=== PATIENT | male | born 1950 | race Caucasian/White ===

== ENCOUNTER 2016-05-26 07:01 | Inpatient (IN) | payer OTHER, MEDICARE ==
[2016-05-26] MEDS ORDERED: NS 0.9% 1000 ML* 1,000 ML IV ONE (07:47)
[2016-05-26] MEDS ORDERED: Diltiazem IV* 5 MG/ML 5 ML VIAL (for loading dose/IV Push) (25 MG) IV SLOW PU ONE (08:00)
[2016-05-26] MEDS ORDERED: Diltiazem IV VIAL* 125 MG in D5W 100 ML BAG* 100 ML IV ONE (08:00)
[2016-05-26 08:17] LABS: Hematocrit 44 % (42-52); Hemoglobin 14.7 g/dl (14.0-18.0); Mean Corpuscular HGB Conc 34 g/dl (31-36); Mean Corpuscular Hemoglobin 31 pg (27-31); Mean Corpuscular Volume 91 fL (80-94); Mean Platelet Volume 8 um3 (7.4-10.4); Red Cell Distribution Width 13 % (10.5-15); White Blood Count 5.9 10^3/ul (3.5-10.8)
[2016-05-26 08:32] LABS: Albumin 3.8 g/dL (3.2-5.2); Calcium 9.1 mg/dL (8.6-10.3); EGFR African American 72.1 (>60); EGFR Non-African American 56.1 (>60); Globulin 2.7 g/dL (2-4); Magnesium 2.2 mg/dL (1.9-2.7); Total Bilirubin 0.4 mg/dL (0.2-1.0); Total Protein 6.5 g/dL (6.4-8.9)
[2016-05-26 08:33] LABS: Troponin I 0.03 ng/mL (<0.04)
--- NOTE | 2016-05-26 08:35 | RAD ---
HISTORY: Irregular heart rate COMPARISONS: May 20, 2003 VIEWS:1: Single frontal portable view of the chest at 8:12 AM FINDINGS: LINES AND TUBES: None. CARDIOMEDIASTINAL SILHOUETTE: The cardiomediastinal silhouette is normal for portable technique. PLEURA: The costophrenic angles are sharp. No pleural abnormalities are noted. LUNG PARENCHYMA: The lungs are clear. ABDOMEN: The upper abdomen is clear. There is no subphrenic gas. BONES AND SOFT TISSUES: There is remote posttraumatic deformity to the left hemithorax. There is post surgical change to the right shoulder IMPRESSION: NO ACTIVE CARDIOPULMONARY DISEASE.
[2016-05-26 09:03] LABS: TSH (Thyroid Stimulating Horm) 2.7 mcIU/mL (0.34-5.60)
[2016-05-26] MEDS ORDERED: Acetaminophen TAB* 325 MG PO PRN (10:03)
[2016-05-26] MEDS ORDERED: PROCHLORPERAZINE INJ 5 MG/ML 2 ML VIAL IV PRN (10:03)
[2016-05-26] MEDS: Diltiazem IV VIAL* 125 MG in D5W 100 ML BAG* 100 ML IV SCH (11:30)
--- NOTE | 2016-05-26 12:22 | ED ---
Tamika Finn Salem, scribed for Cesar Prince MD on 05/26/16 at 0757 . Palpitations / Dysrhythmia - HPI Summary HPI Summary: Patient is a 66 y/o male who presents to the ED with palpitation that lasted approximately 30 minute since this morning. He denies diaphoresis or nausea, but he reports diaphoresis a few days ago. Also he reports lightheadedness today , but denies edema in the lower extremities. He denies rhinorrhea or cough. He also denies intake of caffeine or chocolate. Pt is on medication for HTN and he denies any Hx of MT. - History of Current Complaint Chief Complaint: EDDysrhythmPalp Time Seen by Provider: 05/26/16 07:34 Hx Obtained From: Patient Onset/Duration: Gradual Onset, Lasting Minutes Severity Initially: Moderate Severity Currently: Moderate Aggravating: Nothing Alleviating: Nothing Associated Signs & Symptoms: Lightheadedness - Allergy/Home Medications Allergies/Adverse Reactions: Allergies Allergy/AdvReac Type Severity Reaction Status Date / Time No Known Allergies Allergy Verified 05/26/16 08:50 Home Medications: Home Medications Omeprazole 40 mg PO DAILY 05/26/16 [History Confirmed 05/26/16] Spironolactone TAB* [Aldactone TAB*] 25 mg PO DAILY 05/26/16 [History Confirmed 05/26/16] Valsartan/HCTZ 160/12.5(NF) [Diovan HCT 160/12.5 (NF)] 1 tab PO DAILY 05/26/16 [ History Confirmed 05/26/16] PMH/Surg Hx/FS Hx/Imm Hx Cardiovascular History: Reports: Hx Hypertension GI History: Reports: Other GI Disorders - divirticulitis History: Reports: Other Problems/Disorders - kidney stones Musculoskeletal History: Reports: Other Musculoskeletal History - knee surgery - Surgical History Surgery Procedure, Year, and Place: hernia, knees Infectious Disease History: No Infectious Disease History: Denies: Traveled Outside the [place] in Last 30 Days - Family History Known Family History: Positive: Cardiac Disease - brother atrial septal defect - Social History Substance Use Type: Reports: None Review of Systems Negative: Skin Diaphoresis Negative: Nausea Negative: Edema Neurological: Other - Lightheadedness. All Other Systems Reviewed And Are Negative: Yes Physical Exam - Summary Physical Exam Summary: The patient is well-nourished in no acute distress and in no acute pain. The skin is warm and dry and skin color reflects adequate perfusion. HEENT: The head is normocephalic and atraumatic. The pupils are equal and reactive. The conjunctivae are clear and without drainage. Nares are patent and without drainage. Mouth reveals moist mucous membranes and the throat is without erythema and exudate. The external ears are intact. The ear canals are patent and without drainage. The tympanic membranes are intact. No facial droop. Neck is supple with full range of motion and non-tender. There are no carotid bruits. Respiratory: Chest is non-tender. Lungs are clear to auscultation and breath sounds are symmetrical and equal. Cardiovascular: Irregularly irregular and tachycardic. There is no murmur appreciated. There is no peripheral edema and pulses are symmetrical and equal on upper extremities. Abdomen: The abdomen is soft and non-tender. Obese. Musculoskeletal: There is no back pain noted. Extremities are non-tender with full range of motion. There is good capillary refill. There is no peripheral edema or calf tenderness elicited. Neurological: Patient is alert and oriented to person, place and time. The patient has symmetrical motor strength in all four extremities. Psychiatric: The patient has an appropriate affect and does not exhibit any anxiety or depression. Triage Information Reviewed: Yes Vital Signs On Initial Exam: Initial Vitals Temp Pulse Resp BP Pulse Ox 97.4 F 101 16 140/70 97 05/26/16 07:12 05/26/16 07:12 05/26/16 07:12 05/26/16 07:12 05/26/16 07:12 Vital Signs Reviewed: Yes Diagnostics - Vital Signs Vital Signs Temp Pulse Resp BP Pulse Ox 05/26/16 07:12 97.4 F 101 16 140/70 97 - Laboratory Lab Results: Lab Results 05/26/16 05/26/16 05/26/16 Range/Units 07:55 07:55 07:55 WBC 5.9 (3.5-10.8) 10^3/ul RBC 4.80 (4.0-5.4) 10^6/ul Hgb 14.7 (14.0-18.0) g/dl Hct 44 (42-52) % MCV 91 (80-94) fL MCH 31 (27-31) pg MCHC 34 (31-36) g/dl RDW 13 (10.5-15) % Plt Count 199 (150-450) 10^3/ul MPV 8 (7.4-10.4) um3 Neut % (Auto) 61.6 (38-83) % Lymph % (Auto) 22.7 L (25-47) % Woodson % (Auto) 11.5 H (1-9) % Eos % (Auto) 3.1 (0-6) % Baso % (Auto) 1.1 (0-2) % Absolute Neuts (auto) 3.7 (1.5-7.7) 10^3/ul Absolute Lymphs (auto) 1.3 (1.0-4.8) 10^3/ul Absolute Monos (auto) 0.7 (0-0.8) 10^3/ul Absolute Eos (auto) 0.2 (0-0.6) 10^3/ul Absolute Basos (auto) 0.1 (0-0.2) 10^3/ul Absolute Nucleated RBC 0 10^3/ul Nucleated RBC % 0 INR (Anticoag Therapy) (0.89-1.11) Sodium 140 (133-145) mmol/L Potassium 4.0 (3.5-5.0) mmol/L Chloride 107 (101-111) mmol/L Carbon Dioxide 26 (22-32) mmol/L Anion Gap 7 (2-11) mmol/L BUN 32 H (6-24) mg/dL Creatinine 1.28 H (0.67-1.17) mg/dL Est GFR ( Amer) 72.1 (>60) Est GFR (Non-Af Amer) 56.1 (>60) BUN/Creatinine Ratio 25.0 H (8-20) Glucose 106 H (70-100) mg/dL Lactic Acid 1.5 (0.5-2.0) mmol/L Calcium 9.1 (8.6-10.3) mg/dL Magnesium 2.2 (1.9-2.7) mg/dL Total Bilirubin 0.40 (0.2-1.0) mg/dL AST 26 (13-39) U/L ALT 26 (7-52) U/L Alkaline Phosphatase 55 (34-104) U/L Troponin I 0.03 (<0.04) ng/mL B-Natriuretic Peptide ( - 100) pg/mL Total Protein 6.5 (6.4-8.9) g/dL Albumin 3.8 (3.2-5.2) g/dL Globulin 2.7 (2-4) g/dL Albumin/Globulin Ratio 1.4 (1-3) TSH 2.70 (0.34-5.60) mcIU/mL 05/26/16 05/26/16 Range/Units 07:55 07:55 WBC (3.5-10.8) 10^3/ul RBC (4.0-5.4) 10^6/ul Hgb (14.0-18.0) g/dl Hct (42-52) % MCV (80-94) fL MCH (27-31) pg MCHC (31-36) g/dl RDW (10.5-15) % Plt Count (150-450) 10^3/ul MPV (7.4-10.4) um3 Neut % (Auto) (38-83) % Lymph % (Auto) (25-47) % Woodson % (Auto) (1-9) % Eos % (Auto) (0-6) % Baso % (Auto) (0-2) % Absolute Neuts (auto) (1.5-7.7) 10^3/ul Absolute Lymphs (auto) (1.0-4.8) 10^3/ul Absolute Monos (auto) (0-0.8) 10^3/ul Absolute Eos (auto) (0-0.6) 10^3/ul Absolute Basos (auto) (0-0.2) 10^3/ul Absolute Nucleated RBC 10^3/ul Nucleated RBC % INR (Anticoag Therapy) 0.94 (0.89-1.11) Sodium (133-145) mmol/L Potassium (3.5-5.0) mmol/L Chloride (101-111) mmol/L Carbon Dioxide (22-32) mmol/L Anion Gap (2-11) mmol/L BUN (6-24) mg/dL Creatinine (0.67-1.17) mg/dL Est GFR ( Amer) (>60) Est GFR (Non-Af Amer) (>60) BUN/Creatinine Ratio (8-20) Glucose (70-100) mg/dL Lactic Acid (0.5-2.0) mmol/L Calcium (8.6-10.3) mg/dL Magnesium (1.9-2.7) mg/dL Total Bilirubin (0.2-1.0) mg/dL AST (13-39) U/L ALT (7-52) U/L Alkaline Phosphatase (34-104) U/L Troponin I (<0.04) ng/mL B-Natriuretic Peptide 127 H ( - 100) pg/mL Total Protein (6.4-8.9) g/dL Albumin (3.2-5.2) g/dL Globulin (2-4) g/dL Albumin/Globulin Ratio (1-3) TSH (0.34-5.60) mcIU/mL Result Diagrams: 05/26/16 07:55 05/26/16 07:55 Lab Statement: Any lab studies that have been ordered have been reviewed, and results considered in the medical decision making process. - Radiology CXR Radiology Interpretation Completed By: Radiologist - IMPRESSION: NO ACTIVE CARDIOPULMONARY DISEASE. - EKG 0718 EKG Interpretation: A Fib with rate @ [address]. No STEMI or ST elevation. 0921 EKG Interpretation: Rate slowed down to 78 bpm. Still in A fib. RBBB. Re-Evaluation - Re-Evaluation First Eval Re-Evaluation Time: 09:52 Comment: Pt agrees with plan to admit. Course/Dx - Diagnoses Differential Diagnosis/HQI/PQRI: Positive: Coronary Artery Disease, Hypokalemia , Other - atrial fibrillation with rvr Provider Diagnoses: AFIB WITH RVR - Physician Notifications Discussed Care Of Patient With: Dr. Worley (Cardioilogist) @ 0945. Will admit. Dr. Miranda (Hospitalist). Discharge - Discharge Plan Condition: Stable Disposition: ADMITTED TO [facility] documentation as recorded by the Tamika arriaza Salem accurately reflects the service I personally performed and the decisions made by , Cesar Prince MD.
[2016-05-26] MEDS ORDERED: Ondansetron INJ* 2 MG/ML VIAL IV PRN (12:43)
[2016-05-26] MEDS: Enoxaparin(*) 150 MG/ML 1 ML SYRINGE SUBCUT SCH (14:13)
--- NOTE | 2016-05-26 14:54 | HP ---
HISTORY AND PHYSICAL: DATE OF ADMISSION: 05/26/16 PRIMARY CARE PROVIDER: Dr. Nj. CONSULTING SUBSTITUTE NURSE: Dr. Worley. ATTENDING PHYSICIAN WHILE IN THE HOSPITAL: Sendy Peterson MD * (report dictated by Flash Fiore NP). CHIEF COMPLAINT: Not feeling right. HISTORY OF PRESENT ILLNESS: Mr. Casper is a 66-year-old male patient. He has a history of hypertension, hyperlipidemia, DJD, BETH, GERD and a history of a hole in his heart, I assume PFO. He comes into the ER today, stating that around 6 in the morning he did not feel right. He states he has episodes where he does not feel right at times, he does not feel good. He states today's episode lasted about an hour and a half and he checked his pulse and he noted it was irregular. He had never done this before. At that point because of the irregular pulse, he decided to come into the ER. He denies any recent trips, travel. No recent calf tenderness, swelling or pain. He states that he has not been feeling short of breath. No swelling of the lower extremities. No chest discomfort. Denies any chest pain with exertion. He was concerned, came into the hospital and was ultimately found to have atrial fibrillation, which is new for the patient. He denied having any recent illnesses. Denied having any recent cough, cold or febrile illnesses or any abdominal pain. He was evaluated by Dr. Prince, there was concern for the AFib with RVR, he was requiring IV Cardizem for rate control. Hospitalist service was asked to evaluate for admission. PAST MEDICAL HISTORY: Significant for: 1. Hypertension. 2. Hyperlipidemia. 3. DJD. 4. BETH. 5. GERD. 6. PFO. PAST SURGICAL HISTORY: 1. He has had a hemorrhoidectomy. 2. He has had bilateral arthroscopies. 3. He has had a shoulder arthroscopy. 4. He has had a hernia repair. HOME MEDICATIONS: According to the list that he provided include: 1. Spironolactone 25 mg daily. 2. Omeprazole 40 mg daily. 3. Valsartan/hydrochlorothiazide 1 tablet p.o. daily. ALLERGIES TO MEDICATIONS: Include no known drug allergies. FAMILY HISTORY: Mother had a history of cancer. Father had a history of pacemaker placement. SOCIAL HISTORY: He does not smoke. He does not drink. 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 He also works at [employer]. Surrogate decision maker is his . REVIEW OF SYSTEMS: There is no documented fever. He denied having any significant weight change. There was no double vision. There is no ear discharge. He denies having any rhinorrhea. No sore throat. No thyroid enlargement. Denied having any chest pain. There is no orthopnea and no nocturnal dyspnea. There is no abdominal pain. No nausea. No vomiting. No dysuria. No frequency. No loss of consciousness, no pruritus and no skin ulcerations. Review of 14 systems completed, all others negative. PHYSICAL EXAMINATION GENERAL: At this time, Mr. Casper is a 66-year-old male patient. He is sitting in the hospital bed. He does not appear to be in any acute distress. VITAL SIGNS: Blood pressure 121/71 with a pulse of 64, respirations 15, O2 sat 96%, temperature 97.4. HEENT: Head is atraumatic and normocephalic. Eyes: EOMs are intact. Sclerae anicteric and not pale. Throat: Oral mucosa appears to be moist. No oropharyngeal erythema. NECK: Supple. HEART: Sounds S1, S2. Irregularly irregular rate. No murmurs, rubs, or gallops. LUNGS: Clear to auscultation. No wheezes, rales or rhonchi. ABDOMEN: Soft, flat, nontender. Bowel sounds present. EXTREMITIES: Pulses were 2+ throughout. He is able to move all 4 extremities with 5/5 strength. NEUROLOGIC: The patient is awake, alert and oriented x3. Tongue midline. Victim Witness Administrator are equal. No gross focal deficits. SKIN: Grossly intact. LABORATORY DATA: Today revealed WBC of 5.9, RBC 4.80, hemoglobin 14.7, hematocrit of 44, platelet count of 199, INR 0.94. Sodium 140, potassium 4.0, chloride 107, bicarb of 26, BUN 32, creatinine 1.28, glucose 106, lactic 1.5, calcium 9.1, mag 2.0, total bili is 0.4, AST 26, ALT 26, alk phos 55, troponin 0.03, albumin 2.8. He did have a chest x-ray obtained today which revealed no active cardiopulmonary disease. There was an EKG obtained today. Initial EKG showed an atrial fibrillation with right bundle branch block at a rate of 111. Repeat EKG showed an atrial fibrillation at a rate of 78 with a right bundle branch block as well. No previous for comparison. Old medical records were reviewed. ASSESSMENT AND PLAN: Mr. Casper is a 66-year-old male patient coming into the ER today with complaints of not feeling well. On evaluation he was found to be in atrial fibrillation with rapid ventricular response. He was admitted under observation status for: 1. Atrial fibrillation with rapid ventricular response: At this point, I touch base with Dr. Worley. It is unclear how long the patient has been having these episodes. He says he at times feels like he felt today but it does not last as long as today. He may be going into atrial fibrillation, it is unclear , so I touched base with Dr. Worley. The plan is to go ahead and get an echo, transthoracic, to assess LV function and to look at his atrium and to see if there is any evidence that this may have been occurring longer. We will go ahead and put him on Lovenox b.i.d. His rate is controlled with IV Cardizem at 5 mg an hour and if the echo appears to be stable, the plan will be to make him n.p.o. after midnight for a PELON-guided cardioversion with a plan to anticoagulate him intermediate frame tender with Eliquis. 2. Hypertension. Again it is stable. Continue with Cardizem drip. 3. Hyperlipidemia. Follow up with his primary. 4. Obstructive sleep apnea. He states he is having trouble wearing his mask, so I am going to have RT evaluate him. 5. Gastroesophageal reflux disease. Continue PPI therapy. 6. Patent foramen ovale. I am going to get an echo. 7. Degenerative joint disease. Continue current medical regimen. 8. Code status. Full code. 9. Fluid, electrolytes, and nutrition. He will be on heart healthy diet. He is to be n.p.o. after midnight. TIME SPENT: Time spent on the admission was approximately 60 minutes; greater than half the time was spent [id number] with the patient obtaining my history and physical, other half of the time spent going over the plan of care with the patient and implementing the plan of care. I did discuss the plan of care with my attending, Dr. Peterson, she is in agreement. FLASH FIORE NP CC: Dr. Nj; Dr. Worley* [id number]/[facility] #: [id number] [facility] CENTERLele
[2016-05-26 17:02] VITALS: BP 127/67
[2016-05-26] MEDS ORDERED: Potassium Chloride LIQUID* 20 MEQ PACKET PO ONE (18:02)
--- NOTE | 2016-05-26 22:51 | CONS ---
CARDIOLOGY CONSULTATION: DATE OF CONSULT: 05/26/16 CONSULTING PROVIDERS: Flash Fiore NP and Dr. Sendy Peterson. REASON FOR EVALUATION: Atrial fibrillation. HISTORY OF PRESENT ILLNESS: This is a very pleasant 66-year-old gentleman with a history of hypertension, sleep apnea, hyperlipidemia, gastroesophageal reflux , and a possible hole in his heart. He said for years he had occasional episodes of extra beats or irregular beats, sometimes feeling forceful beating of his heart. He said he had a stress test about 5 years ago and an echocardiogram. He is told he did well on the stress test, but that he had a small hole in his heart. He reports that he is active. 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 He does not exercise regularly and he has gained 9 pounds over the winter because of the lack of activity, but he said during the summer, he is able to unload hay and he and his partner unloaded 220 tamanna of hay, stopping senior care through to rest a little bit. He said that this morning, he woke up at about 6 a.m. and noticed that he felt a "spell." He had trouble describing and said he felt little lightheaded and weak. He decided to take his pulse and noticed that his carotid pulses are irregular. Because of those findings, he decided to come to the emergency room. He was found to be in atrial fibrillation with a rapid ventricular response. He denies syncope or near syncope or chest pressure, no orthopnea, no peripheral edema. He says that he rarely has caffeinated soda. He says he has occasional beer in the summer. He denies any stroke or mini strokes, or bleeding problems. PAST MEDICAL HISTORY: Includes, hypertension; hyperlipidemia; degenerative joint disease; obstructive sleep apnea, on CPAP for years, but he says that he does not think it is working adequately; gastroesophageal reflux; possible " hole in his heart" as mentioned above; obesity. PAST SURGICAL HISTORY: Includes, hemorrhoidectomy; bilateral arthroscopic surgeries of his knees, two on the right and one on the left; right shoulder repair arthroscopically, approximately 2014 or 2015, postop course was complicated by edema and he was treated with valsartan/hydrochlorothiazide with improvement, he said he also was on Aldactone at that time, but has discontinued that on his own; he had bilateral hernia repairs and repeat on the left. MEDICATIONS: As inpatient include: 1. Acetaminophen. 2. Diltiazem drip at 5 mg an hour. 3. Enoxaparin 110 mg subcu q.12. 4. Omeprazole 40 mg a day. 5. Zofran 4 mg IV q.6. At home, he was on valsartan/hydrochlorothiazide 160/12.5. ALLERGIES: He denies any drug allergies. FAMILY HISTORY: Mother of cancer at 54 and father at 80 and had a pacemaker. His family history includes a brother, who was diagnosed with hole in his heart, had it closed percutaneously in his 60's, now age 71. One brother of unknown causes. He has another brother and another sister. SOCIAL HISTORY: He is , has no children. Denies tobacco use. REVIEW OF SYSTEMS: His review of systems x10 was negative except as above. PHYSICAL EXAM: He is a well-developed, obese gentleman at 199 pounds. Blood pressure 127/67, heart rate in the 70s and irregular. No significant JVD. Carotids 2+. No cervical lymphadenopathy or thyromegaly. Atraumatic, normocephalic. Extraocular muscles intact. Sclerae anicteric. Cardiac Exam: S1 and S2 with a widely split S2. No significant murmurs, gallops, or rubs. Chest was clear. No CVAT. Abdomen: Obese. Bowel sounds present. No hepatosplenomegaly. Femoral pulses are intact without bruits. Distal pulses are intact. No significant edema. Motor strength 5/5 bilaterally. Deep tendon reflexes are 2/4. Alert and oriented x3. DIAGNOSTIC STUDIES/LAB DATA: Labs include normal CBC. Sodium 140, potassium of 4, BUN of 32, creatinine of 1.28. Troponin 0.03. BNP minimally elevated at 127. TSH normal. EKG revealed atrial fibrillation with a rapid ventricular response in the 110 range with a right bundle branch block and nonspecific ST-T changes, that was at 7 a.m. Repeat EKG at 9:20 revealed controlled ventricular response in the 70s and AFib with a right bundle branch block. IMPRESSION AND PLAN: My impression is that Mr. Casper has atrial fibrillation in the setting of hypertension, sleep apnea, obesity, and possible congenital heart defect. I did explain to him the significance of atrial fibrillation, the potential causes as well as the potential for cerebrovascular accident. For the time being, I would recommend the followin. We would recommend anticoagulation as you are doing. 2. We would continue with rate control as you are doing, consider switching him to oral diltiazem. 3. We will try to maintain his potassium over 4. 4. He is to have an echocardiogram. 5. We will arrange for a PELON-guided cardioversion in an attempt to restore his sinus rhythm if he remains in atrial fibrillation. 6. I explained that he is at risk for recurrent atrial fibrillation based on his episode and his risk factors. 7. Hopefully with anticoagulation and rate control, he will be able to tolerate paroxysmal atrial fibrillation. 8. We did discuss the potential for the need for antiarrhythmics or referral for ablation if he has symptomatic atrial fibrillation. 9. We will also get a better sense of the significance of this atrial septal defect with the echo and transesophageal echo. 10. At some point, it might be worth to repeat evaluation for ischemic heart disease. 11. I asked him to try to reduce his weight, increase his exercise, and try to optimize his CPAP. 12. He understands that his obesity, sleep apnea, and hypertension all can lower the threshold for his atrial fibrillation. 13. I asked him to avoid caffeine. Further recommendation depends on his clinical course. CC: Dr. Nj* [id number]/[facility] #: [id number] SHRAVAN
[2016-05-27] MEDS: Enoxaparin(*) 150 MG/ML 1 ML SYRINGE SUBCUT SCH ×2 (02:19→15:03)
[2016-05-27 05:46] LABS: Hematocrit 45 % (42-52); Mean Corpuscular HGB Conc 33 g/dl (31-36); Mean Corpuscular Hemoglobin 30 pg (27-31); Mean Corpuscular Volume 91 fL (80-94); Mean Platelet Volume 8 um3 (7.4-10.4); Red Blood Count 4.93 10^6/ul (4.0-5.4); Red Cell Distribution Width 13 % (10.5-15); White Blood Count 6.9 10^3/ul (3.5-10.8)
[2016-05-27 06:19] LABS: BUN/Creatinine Ratio 20.5 (8-20); Calcium 8.8 mg/dL (8.6-10.3); EGFR African American 69.6 (>60); EGFR Non-African American 54.1 (>60); Potassium 3.9 mmol/L (3.5-5.0)
[2016-05-27] MEDS ORDERED: Omeprazole CAP* 20 MG PO SCH (07:30)
[2016-05-27] MEDS ORDERED: D5W 100 ML BAG* 100 ML ONE (07:31)
[2016-05-27] MEDS: Diltiazem IV VIAL* 125 MG in D5W 100 ML BAG* 100 ML IV SCH (08:08)
[2016-05-27] MEDS ORDERED: Midazolam* 1 MG/ML 5 ML VIAL (5 MG) ONE (13:08)
[2016-05-27] MEDS ORDERED: Flumazenil* 0.1 MG/ML 5 ML MDV ONE (13:09)
[2016-05-27] MEDS ORDERED: Naloxone* 0.4 MG/ML 1 ML VIAL ONE (13:09)
[2016-05-27] MEDS ORDERED: fentaNYL* 50 MCG/ML 2 ML VIAL (100 MCG VIAL) ONE (13:09)
--- NOTE | 2016-05-27 20:24 | TEE ---
Patient: VIKRAM PINON [facility] Rec#: [id number] : 1950 Date: 05/27/2016 Age: 66y Height: 177.8 cm / 70.0 in Weight: 111.1 kg / 244.9 lbs Sex: M BSA: 2.3 Room#: 450 Admit Date#: 05/26/2016 Type: Inpatient Referring: James Worley MD Performing: James Worley MD Reading: James Worley MD Manufacturing Quality Inspector: Sammie Castelan RN RDCS Nurse: DREW Wahl Alicia CC: Paul Nj MD Transesophageal Echocardiogram Indication: Atrial fibrillation BP: 122/65 HR: 77 Rhythm: A-Fib Findings History: HTN Technical Comments: The study quality is good. Left Ventricle: The left ventricular chamber size is normal. There is a prominent septal knuckle. Global left ventricular wall motion and contractility are within normal limits. There is normal left ventricular systolic function. The estimated ejection fraction is 60-65%. Left Atrium: The left atrium is mildly dilated. The left atrial appendage is elongated. No thrombus is visualized within the left atrium. There is no thrombus visualized in the left atrial appendage. Right Ventricle: The right ventricular cavity size is normal. The right ventricular global systolic function is normal. Right Atrium: The right atrial cavity size is normal. A prominent eustachian valve is noted in the right atrium. The atrial septum is mobile. A patent foramen ovale is demonstrated by agitated contrast. Small amounts of shunting with respiratory variation. Aortic Valve: The aortic valve is trileaflet. The aortic valve leaflets are mildly thickened. There is a trace of aortic regurgitation. There is no evidence of aortic stenosis. Mitral Valve: The mitral valve leaflets appear normal. There is mild to moderate mitral regurgitation. There is no evidence of mitral stenosis. Tricuspid Valve: The tricuspid valve leaflets are normal. There is trace tricuspid regurgitation. Pulmonic Valve: The pulmonic valve structure is not well visualized. There is a trace pulmonic regurgitation. Pericardium: There is no significant pericardial effusion. Aorta: There is no dilatation of the ascending aorta. There is mild dilatation of the aortic root. There is minimal atherosclerotic plaque seen in the aorta. Pulmonary Artery: The main pulmonary artery appears normal. Venous: The bicaval view was obtained and appears normal. The pulmonary veins appear normal. 3 of 4 pulmonary veins are visualized. PELON Procedures: All standard views were attempted within the limitations of patient tolerance and safety. History and physical as well as labs were reviewed. The patient was in a fasting state. Risks and benefits of the procedure, including alternatives, were discussed and written informed consent was obtained. The patient and/or their health care used equipment sales representative expressed understanding of the procedure, risks and benefits. Baseline and continuous monitoring of blood pressure, heart rate, pulse oximetry and heart rhythm was performed throughout the procedure. The appropriate time-out procedure was performed as per [facility] protocol. The patient was placed in the left lateral decubitus position. The patient received IV Midazolam with a total dose of 5 mg. The patient received IV Fentanyl with a total dose of 25 mcg. An oral bite block was inserted for protection of oral dentition. The multiplane transesophageal echocardiogram probe was inserted through the posterior oropharynx and advanced into the esophagus without difficulty. Multiple 2D images were obtained of the heart and its related structures. Color flow Doppler was used for evaluation. Spectral Doppler was also used. The atrial septum was interrogated with color flow Doppler. At the conclusion of the procedure the probe was removed with continuous suction without complications. The patient tolerated the procedure with no apparent complications. Contrast: Normal saline was used as contrast for the bubble study. Images 47, 56, and 58. Conclusions Global left ventricular wall motion and contractility are within normal limits. The estimated ejection fraction is 60-65%. The left atrium is mildly dilated. The left atrial appendage is elongated. A patent foramen ovale is demonstrated by agitated contrast. Small amounts of shunting with respiratory variation. The aortic valve leaflets are mildly thickened. There is mild to moderate mitral regurgitation. There is mild dilatation of the aortic root. There is minimal atherosclerotic plaque seen in the aorta. No prior echo. Measurements Name Value Normal Range Aortic Annulus 2.5 cm (1.4 - 2.6) Ao root diameter (2D) 3.7 cm (2.1 - 3.5) Ascending Ao 3.4 cm (2.1 - 3.4) Name Value Normal Range MV E-wave Vmax 0.89 m/sec - MV deceleration time 130 msec -
--- NOTE | 2016-05-27 23:33 | CARD ---
CARDIOLOGY PROCEDURE NOTE: DATE OF PROCEDURE: PATIENT OF: Dr. Peterson and Dr. Nj. REASON FOR PROCEDURE: AFib. HISTORY: This is a very pleasant 66-year-old gentleman who was incidentally noted to be in AFib wit h a rapid ventricular response. He was sent for admission and he has been asymptomatic with good ra te control. Informed consent was obtained. He was in a fasting state. A PELON was performed to excl ude intracardiac thrombus. There was no evidence of thrombus. He did have normal LV function, mild MR, and a small PFO. He received 5 mg of Versed and 25 mcg of fentanyl for the PELON. He received ad ditional 2 mg prior to the cardioversion. A single synchronized biphasic shock of 120 joules was ap plied with successful conversion to sinus rhythm. His IV diltiazem was discontinued. IMPRESSION: Successful conversion from atrial fibrillation to sinus rhythm. He is to continue on anticoagulation for at least a month and perhaps skilled nursing given the fact that he has risk factors for cardioembolic events and is not aware of the atrial fibrillation. He is to avoid caffeine and alcohol. He is to maintain his potassium over 4. Would consider discharging on a low dose of diltiazem 120 mg CD once a day if his blood pressure renae l tolerate it. [id number]/[facility] #: [id number]
--- NOTE | 2016-05-28 05:09 | DS ---
DISCHARGE SUMMARY: DATE OF ADMISSION: 05/26/16 DATE OF DISCHARGE: 05/27/16 PRIMARY CARE PROVIDER: Dr. Nj. PRIMARY DIAGNOSIS: Atrial fibrillation with rapid ventricular response. SECONDARY DIAGNOSES: Include: 1. Hypertension. 2. Hyperlipidemia. 3. History of gastroesophageal reflux disease. 4. History of patent foramen ovale. PROCEDURE PERFORMED DURING HOSPITAL STAY: Transesophageal echocardiogram with DC cardioversion, back to normal sinus rhythm. PERTINENT LABORATORY DATA DURING THE COURSE OF HOSPITAL STAY: Creatinine 1.3 on discharge and TSH 2.7. MEDICATIONS ON DISCHARGE: 1. Spironolactone 25 mg daily. 2. Omeprazole 40 mg daily. 3. Valsartan/hydrochlorothiazide 160/12.5 mg 1 tablet daily. 4. Eliquis 5 mg twice daily, please note the addition of Eliquis. HISTORY OF PRESENT ILLNESS AND HOSPITAL COURSE: This is a 66-year-old man with past medical history as outlined in the history of present illness on the day of admission. He yesterday presented to the hospital with a sensation of feeling off or just not right. He checked his pulse and noted to be irregular. He has had similar episodes recently. He was found to be in atrial fibrillation, rapid ventricular response, peak rate recorded at 115 beats per minute. He was started on diltiazem drip, admitted to the hospitalist service. He was monitored on diltiazem drip, did not chemically cardiovert to normal sinus rhythm. He was seen in consultation with Cardiology, performed a PELON cardioversion on the day of discharge, tolerated the procedure well, with conversion back to normal sinus rhythm. Status post conversion, the patient's heart rate was running 59 to 61 beats per minute. For this reason, no AV santosh blockade was started on discharge. If he does have return of atrial fibrillation , consideration to starting Cardizem CD 120 mg would be advised as also advised by a Cardiology consultation. The patient had difficulty using his CPAP for his obstructive sleep apnea. 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 I suspect that it is uncontrolled or untreated BETH likely contributing to the atrial fibrillation. Discussion was had with the patient pertaining to following up with his novelty printing machine operator. The patient agrees with the plan. At followup, please: 1. Evaluate for continued maintenance of normal sinus rhythm or rate control in atrial fibrillation. 2. Creatinine was 1.3 on discharge, last known was 1.2 in 2012. If this is a change from prior, please follow for resolution. 3. No other specific labs or vitals that need followup. Reasons to return to the hospital including but not limited to recurrent or worsening symptoms including abnormal heart rate or palpitation, chest pain, shortness of breath, lightheadedness, loss of consciousness, near loss of consciousness, nausea, vomiting, fevers, inability to obtain or tolerate his medications were discussed with the patient and he acknowledged understanding. TIME SPENT: Greater than 40 minutes were spent on the discharge of this patient , greater than half was [id number] with the patient. CC: Dr. Nj * [id number]/[facility] #: [id number] SHRAVAN
== END 2016-05-27 19:30 | disposition home or self-care (01) | DRG 309 ==
LOC: ED 07:01 → MEDTELE 10:00
PROVIDERS: ADMIT Internal Medicine; ATTEND Internal Medicine
PROC: 5A2204Z Restoration of Cardiac Rhythm, Single (ICD-10-PCS; principal; 2016-05-27 09:30)
DX: I48.91 Unspecified atrial fibrillation (principal); Q21.1 Atrial septal defect; I10 Essential (primary) hypertension; E78.5 Hyperlipidemia, unspecified; K21.9 Gastro-esophageal reflux disease without esophagitis; G47.33 Obstructive sleep apnea (adult) (pediatric); M19.90 Unspecified osteoarthritis, unspecified site; Z80.9 Family history of malignant neoplasm, unspecified; Z82.49 Family history of ischemic heart disease and other diseases of the circulatory system
CPT/HCPCS: 36415; 71010; 80048; 80053; 83605; 83735; 83880; 84443; 84484; 85025; 85610; 92960; 93005; 93312; 93325; 94760; A9270-GY; J1650; J2250; J2310; J3010